=== PATIENT | male | born 1985 | race Caucasian/White ===

== ENCOUNTER → 2018-08-04 | Outpatient (CLI) | payer SELFPAY ==
--- NOTE | 2018-08-04 15:21 | Diagnostic Imaging Report ---
PROCEDURE: MRI lumbar spine. TECHNIQUE: Multiplanar, multisequence MRI of the lumbar spine was performed without contrast. INDICATION: Low back pain with a right radiculopathy FINDINGS: Vertebral body height and alignment appear normal. Vertebral bodies have normal signal characteristics. There are no intrinsic cord abnormalities. The discs from T11-12 through L4-5 appear normal. There is some desiccation of the disc at L5-S1 with mild concentric bulging of the annulus but no disc herniation or spinal stenosis. IMPRESSION: Mild bulging annulus of L5-S1 with some desiccation of the disc. MRI of the lumbar spine otherwise unremarkable. Dictated by: Dictated on workstation # [id number]
== END ==
LOC: RAD 13:17
PROVIDERS: ATTEND Nurse Practitioner Primary Care
DX: M51.17 Intervertebral disc disorders with radiculopathy, lumbosacral region (principal)
CPT/HCPCS: 72148

== ENCOUNTER 2020-12-29 13:00 | Outpatient (RCR) | payer SELFPAY ==
[2020-12-29 14:32] LABS: SEMEN VOLUME 1.5 ML (1.5-5.0)
== END 2021-03-26 | disposition home or self-care (01) ==
LOC: LAB 13:00
PROVIDERS: ATTEND Nurse Practitioner
DX: R86.8 Other abnormal findings in specimens from male genital organs (principal)
CPT/HCPCS: 89320